=== PATIENT | male | born 1970 | race Caucasian/White ===

== ENCOUNTER → 2020-05-10 | Emergency (ER) | payer OTHER ==
[~2020-05-10] VITALS: Ht 172.7 cm; Wt 68.0 kg
[~2020-05-10] MED LIST: IBUPROFEN 600600 M1 PO; NORCO5 PO
[2020-05-10 22:40] VITALS: BP 132/70
== END ==
LOC: M.ERS 20:25
DX: S52.222A Displaced transverse fracture of shaft of left ulna, initial encounter for closed fracture (principal); S20.211A Contusion of right front wall of thorax, initial encounter; Y08.89XA Assault by other specified means, initial encounter; Y93.89 Activity, other specified; Y92.89 Other specified places as the place of occurrence of the external cause; Y99.8 Other external cause status